=== PATIENT | female | born 1960 | race Caucasian/White ===

== ENCOUNTER 2018-11-23 12:16 | Outpatient (REF) | payer MEDICAID, SELFPAY ==
[2018-11-23 22:32] LABS: Anion Gap 12.6 mmol/L (3-11); BUN 11 mg/dL (7-18); CO2 23.4 mmol/L (21.0-32.0); Chloride 103 mmol/L (98-107); Cholesterol 251 mg/dL (50-200); Glucose 103 mg/dL (70-100); HDL Cholesterol 31 mg/dL (40-60); LDL CHOLESTEROL 153 mg/dL (<100); Potassium 4.2 mmol/L (3.5-5.1); Sodium 139 mmol/L (136-145); TSH 4.34 uIU/mL (0.358-3.74); Triglyceride 471 mg/dL (30-150)
[2018-11-23 22:46] LABS: CREATININE 0.73 mg/dL (0.55-1.02)
== END 2018-11-23 12:36 ==
LOC: NCHCN 12:16
PROVIDERS: PCP Internal Medicine; Visit Provider Nurse Practitioner Family
DX: E66.9 Obesity, unspecified (principal); Z13.228 Encounter for screening for other metabolic disorders; Z13.1 Encounter for screening for diabetes mellitus; Z13.29 Encounter for screening for other suspected endocrine disorder; Z13.220 Encounter for screening for lipoid disorders
CPT/HCPCS: 80048; 80061; 83721; 83036; 84443

== ENCOUNTER 2021-11-22 18:53 | Outpatient (REF) | payer MEDICAID, SELFPAY ==
[2021-11-24 11:44] LABS: COVID-19 RT-PCR UVMMC Result Negative (Negative)
== END 2021-11-22 18:54 | disposition home or self-care (01) ==
LOC: NCHCN 18:53
PROVIDERS: PCP Internal Medicine; Visit Provider Nurse Practitioner Family
DX: Z20.822 Contact with and (suspected) exposure to COVID-19 (principal)
CPT/HCPCS: U0003

== ENCOUNTER 2022-10-14 12:10 | Outpatient (REF) | payer MEDICAID, SELFPAY ==
[2022-10-14 14:50] LABS: HCT 40.2 % (36.0-46.0); MCH 26.9 pg (27.0-33.0); MCHC 32.3 % (32.0-36.0); MCV 83 fL (80-95); MPV 9.8 fL (8.0-11.0); Platelet Count 348 10^3/uL (130-400); RBC 4.84 10^6/uL (3.93-5.22); RDW 13.5 % (11.7-14.6); WBC 5.32 10^3/uL (4.4-10.8)
[2022-10-14 15:17] LABS: Hemoglobin A1C 5.7 % (<5.7)
[2022-10-14 15:29] LABS: ALT 35 U/L (14-59); AST 27 U/L (15-37); Albumin 4.3 g/dL (3.4-5.0); Alkaline Phosphatase 108 U/L (46-116); Anion Gap 11.5 mmol/L (3-11); BUN 21 mg/dL (7-18); Bilirubin, Total 0.3 mg/dL (0.2-1.0); CO2 21.5 mmol/L (21.0-32.0); CREATININE 0.7 mg/dL (0.55-1.02); Calcium 9.1 mg/dL (8.5-10.1); Calculated LDL 141 mg/dL (<100); Chloride 101 mmol/L (98-107); Cholesterol 244 mg/dL (<200); Estimated GFR 98.95 (mL/min/1.73m2); Glucose 118 mg/dL (74-106); HDL Cholesterol 39 mg/dL (40-60); Potassium 4.5 mmol/L (3.5-5.1); Sodium 134 mmol/L (136-145); TSH 3.38 uIU/mL (0.36-3.74); Total Protein 8.4 g/dL (6.4-8.2); Triglyceride 322 mg/dL (<150)
== END 2022-10-14 12:11 | disposition home or self-care (01) ==
LOC: NCHCN 12:10
PROVIDERS: PCP Internal Medicine; Visit Provider Nurse Practitioner Family
DX: I10 Essential (primary) hypertension (principal); R73.03 Prediabetes; E78.00 Pure hypercholesterolemia, unspecified; F41.1 Generalized anxiety disorder; F51.09 Other insomnia not due to a substance or known physiological condition
CPT/HCPCS: 80053; 80061; 85027; 83036; 84443

== ENCOUNTER 2024-03-25 14:36 | Outpatient (REF) | payer MEDICAID, SELFPAY | END 2024-03-25 14:37 | disposition home or self-care (01) | LOC: NCHCN 14:36 | PROVIDERS: PCP Internal Medicine; Visit Provider Nurse Practitioner Family | DX: L02.92 Furuncle, unspecified (principal) | CPT/HCPCS: 87077; 87070; 87186; 87205 ==

== ENCOUNTER 2024-05-17 15:47 | Outpatient (REF) | payer MEDICAID, SELFPAY ==
[2024-05-17 15:55] LABS: HCT 40.2 % (36.0-46.0); HGB 12.9 g/dL (11.2-15.7); MCH 26.8 pg (27.0-33.0); MCHC 32.1 % (32.0-36.0); MCV 84 fL (80-95); MPV 10.2 fL (8.0-11.0); Platelet Count 326 10^3/uL (130-400); RBC 4.81 10^6/uL (3.93-5.22); RDW 13.2 % (11.7-14.6); RDW-SD 40.1 fL; WBC 4.06 10^3/uL (4.4-10.8)
[2024-05-17 16:20] LABS: Hemoglobin A1C 5.7 % (<5.7)
[2024-05-17 17:32] LABS: ALT 33 U/L (14-59); AST 27 U/L (15-37); Albumin 4.2 g/dL (3.4-5.0); Alkaline Phosphatase 117 U/L (46-116); BUN 21 mg/dL (7-18); Bilirubin, Total 0.32 mg/dL (0.2-1.0); CREATININE 0.8 mg/dL (0.55-1.02); Calcium 9.4 mg/dL (8.5-10.1); Calculated LDL 148 mg/dL (<100); Chloride 105 mmol/L (98-107); Cholesterol 262 mg/dL (<200); Estimated GFR 83.78 (mL/min/1.73m2); Ferritin 67 ng/mL (8-252); Glucose 99 mg/dL (74-106); HDL Cholesterol 40 mg/dL (40-60); Potassium 4.1 mmol/L (3.5-5.1); Sodium 141 mmol/L (136-145); TSH 3.71 uIU/Ml (0.36-3.74); Total Protein 7.9 g/dL (6.4-8.2); Triglyceride 374 mg/dL (<150)
== END 2024-05-17 15:48 | disposition home or self-care (01) ==
LOC: NCHCN 15:47
PROVIDERS: PCP Internal Medicine; Visit Provider Nurse Practitioner Family
DX: I10 Essential (primary) hypertension (principal); R73.03 Prediabetes; E03.9 Hypothyroidism, unspecified; E78.5 Hyperlipidemia, unspecified; R79.89 Other specified abnormal findings of blood chemistry; G25.81 Restless legs syndrome
CPT/HCPCS: 80053; 80061; 85027; 82728; 83036; 84443

== ENCOUNTER 2025-07-28 14:53 | Outpatient (REF) | payer MEDICAID, SELFPAY ==
[2025-07-28 15:01] LABS: Anion Gap 7.8 mmol/L (3-11); BUN 20 mg/dL (7-18); CO2 25.2 mmol/L (21.0-32.0); Calcium 9.1 mg/dL (8.5-10.1); Chloride 104 mmol/L (98-107); Estimated GFR 101.42 (mL/min/1.73m2); Glucose 97 mg/dL (74-106); Potassium 4.6 mmol/L (3.5-5.1); Sodium 137 mmol/L (136-145)
[2025-07-28 15:10] LABS: Hemoglobin A1C 5.6 % (<5.7)
== END 2025-07-28 14:54 | disposition home or self-care (01) ==
LOC: NCHCN 14:53
PROVIDERS: PCP Internal Medicine; Visit Provider Nurse Practitioner Family
DX: I10 Essential (primary) hypertension (principal); R73.03 Prediabetes
CPT/HCPCS: 80048; 83036